=== PATIENT | male | born 1985 | race Caucasian/White ===

== ENCOUNTER 2024-10-17 01:41 | Emergency (ER) | payer MEDICAID ==
[~2024-10-17] VITALS: Ht 167.6 cm; Wt 63.5 kg
[2024-10-17 02:41] LABS: BASO % 0.6 % (0.0-1.0); EOS # 0.3 10*3/uL (0.0-0.4); EOS % 5.5 % (1.0-4.0); HEMATOCRIT 44.4 % (42.0-52.0); MEAN CELL VOLUME 91.5 fl (80.0-94.0); MEAN CORPUSCULAR HGB 30.1 pg (27.0-31.0); MEAN CORPUSCULAR HGB CONC 32.9 g/dl (33.0-37.0); MEAN PLATELET VOLUME 9.4 fl (9.6-12.3); MONO # 0.5 10*3/uL (0.1-1.0); MONO % 8.5 % (3.0-9.0); NEUT # 2.4 10*3/uL (2.3-7.9); NEUT % 43.4 % (47.0-73.0); PLATELET COUNT AUTOMATED 168 10*3/uL (130-400); RED BLOOD COUNT 4.85 10*6/uL (4.50-5.90); WHITE BLOOD COUNT 5.4 10*3/uL (4.8-10.8)
[2024-10-17 03:02] LABS: ALKALINE PHOSPHATASE 120 U/L (46-116); BUN 14 mg/dl (9-23); CHLORIDE 102 mmol/L (98-107); POTASSIUM 4.3 mmol/L (3.4-5.1); SGPT/ALT 10 U/L (5-49); TOTAL PROTEIN 6.5 gm/dL (6.0-8.0)
== END 2024-10-17 04:57 ==
LOC: ED 01:41
PROVIDERS: Emergency Medicine
DX: R07.89 Other chest pain (principal)